=== PATIENT | male | born 1970 | race Caucasian/White ===

== ENCOUNTER 2019-04-17 11:42 | Emergency (ER) | payer OTHER ==
[~2019-04-17] VITALS: Ht 160 cm; Wt 89.0 kg
[2019-04-17 11:44] VITALS: BP 135/85; PULSE 85; RESP 18; Ht 160 cm; Wt 89.0 kg
[2019-04-17] MEDS ORDERED: FLUT9.9S NASAL (13:14)
[2019-04-17] MEDS ORDERED: SODI30SP2 NS (13:14)
--- NOTE | 2019-04-17 13:17 | ERD ---
ER Documentation Chief Complaint Chief Complaint HAS FLUU SINCE MONDAY, TODAY SINUS HEADACHE, NASAL CONGESTION HPI Is a 48-year-old male patient who presents emergency room with complaint of sinus congestion and sinus headache x3 days. No fever, mild cough, no nausea vomiting. History significant for HIV, patient states viral loads are currently undetectable. Patient states he has recently moved into a new house and noticed his symptoms started at that time. His primary care provider has already prescribed him Claritin for allergic rhinitis. ROS All systems reviewed and are negative except as per history of present illness. Medications Home Meds Active Scripts Sodium Chloride (Saline Nasal Cecil) 30 Ml Cecil, 30 ML NS BID for nasal congestion for 10 Days, #30 ML Prov:TAMIA MONTANO NP 04/17/19 Fluticasone Propionate (Flonase Allergy Relief) 9.9 Ml Cecil.susp, 2 SPRAY NASAL BID for rhinitis for 14 Days, #1 BOTTLE TO EACH NOSTRIL Prov:TAMIA MONTANO NP 04/17/19 Allergies Allergies: Coded Allergies: efavirenz (Verified Allergy, Unknown, 04/17/19) PMhx/Soc History of Surgery: No Anesthesia Reaction: No Hx Neurological Disorder: No Hx Respiratory Disorders: No Hx Cardiac Disorders: No Hx Psychiatric Problems: No Hx Miscellaneous Medical Probl: Yes (HIV, myasthenia gravis) Hx Alcohol Use: No Hx Substance Use: No Hx Tobacco Use: No Smoking Status: Never smoker FmHx Family History: No diabetes, No coronary disease, No other Physical Exam Vitals Vital Signs Date Temp Pulse Resp B/P (MAP) Pulse Ox O2 O2 Flow FiO2 Time Delivery Rate 04/17/19 98.0 85 18 135/85 99 11:44 (102) Physical Exam Const: No acute distress Head: Atraumatic, +maxillary tenderness Eyes: Normal Conjunctiva, PERRL ENT: Normal External Ears, TM clear BL, Nasal mucosa pale, no drainage, pharynx pink, moist, no lesions, no exudate Neck: Full range of motion. No meningismus. No lymphadenopathy Resp: Clear to auscultation bilaterally Cardio: Regular rate and rhythm, no murmurs Abd: Soft, non tender, non distended. Normal bowel sounds Skin: No petechiae or rashes Ext: No cyanosis, or edema Neur: Awake and alert, CNII-XII intact Psych: Normal Mood and Affect Procedures/MDM PROCEDURES/MDM MDM: This is a 48 yo male who presents with the ED with c/o nasal congestion and MELENDEZ for several days. States he has recently moved in to a new home and has noticed runny nose, PND, and nasal congestion since moving in. He has dennis prescribed antihistamine but has not started taking it. The patient clinically looks well, has near normal work of breathing, normal level of alertness that is age appropriate, and normal abdominal exam. There are none of the following: meningeal signs, worrisome rash, evidence of serious ENT infection, respiratory distress, or evidence of serious bacterial infection by history and exam at this time. Discussed self-care including increasing hydration, using saline nasal spray, cleaning environment, starting antihistamine (Claritin?) and use of Flonase. Pt given instructions on Red flags, s/sx and reasons to return to ER. DISPOSITION and PLAN: RX:Flonase, saline nasal spray The patient has been discharge home to follow-up with community physician. Departure Diagnosis: Primary Impression: Allergic rhinitis Allergic rhinitis trigger: unspecified Allergic rhinitis seasonality: unspecified Qualified Codes: J30.9 - Allergic rhinitis, unspecified Condition: Stable Patient Instructions: Allergic Rhinitis Referrals: [facility] YOU HAVE RECEIVED A MEDICAL SCREENING EXAM AND THE RESULTS INDICATE THAT YOU DO NOT HAVE A CONDITION THAT REQUIRES URGENT TREATMENT IN THE EMERGENCY DEPARTMENT. FURTHER EVALUATION AND TREATMENT OF YOUR CONDITION CAN WAIT UNTIL YOU ARE SEEN IN YOUR DOCTORS OFFICE WITHIN THE NEXT 1-2 DAYS. IT IS YOUR RESPONSIBILITY TO MAKE AN APPOINTMENT FOR FOLOW-UP CARE. IF YOU HAVE A PRIMARY DOCTOR --you should call your primary doctor and schedule an appointment IF YOU DO NOT HAVE A PRIMARY DOCTOR YOU CAN CALL OUR PHYSICIAN REFERRAL HOTLINE AT IF YOU CAN NOT AFFORD TO SEE A PHYSICIAN YOU CAN CHOSE FROM THE FOLLOWING [facility] [address] [facility] [address] [facility] [address] [facility] [address] [facility]. [facility] [address] [facility]. [facility]. [address] Additional Instructions: Thank you very much for allowing us to participate in your care. Your health and safety is our top priority at [facility]. Call your primary care doctor TOMORROW for an appointment during the next 2-4 days and bring all the information and medications prescribed. Have prescriptions filled and follow precisely the directions on the label. If the symptoms get worse and your provider is unavailable, return to the Emergency Department immediately. TAMIA MONTNAO NP Apr 17, 2019 13:17
== END 2019-04-17 13:26 | disposition home or self-care (01) ==
LOC: FTE 11:42
DX: J30.9 Allergic rhinitis, unspecified (principal); Z21 Asymptomatic human immunodeficiency virus [HIV] infection status
CPT/HCPCS: 99283